=== PATIENT | female | born 1990 | race Caucasian/White ===

== ENCOUNTER 2018-09-30 18:44 | Emergency (ER) | payer OTHER ==
[~2018-09-30] VITALS: Ht 152.4 cm; Wt 73.5 kg
[2018-09-30 18:49] VITALS: Ht 152.4 cm; Wt 73.5 kg
[2018-09-30 21:03] LABS: BASOPHIL % 0.3 % (0-2); PLATELET COUNT 260 x10^3mcL (130-400)
[2018-09-30 21:13] LABS: CALCIUM 8.2 mg/dL (8.5-10.1); CARBON DIOXIDE 24.4 mmol/L (21-32); CHLORIDE SERUM 103 mmol/L (98-107); CREATININE SERUM 0.5 mg/dL (0.6-1.0); GFR1 > 60 mL/min; GLUCOSE SERUM 88 mg/dL (74-106); POTASSIUM SERUM 3.4 mmol/L (3.5-5.1); SODIUM SERUM 137 mmol/L (136-145)
[2018-09-30 21:18] LABS: ALKALINE PHOSPHATASE 86 U/L (46-116); ALT/SGPT 18 U/L (14-59); AST/SGOT 14 U/L (15-37); BILIRUBIN TOTAL 0.71 mg/dL (0.20-1.00)
[2018-09-30 21:20] LABS: ALBUMIN 2.8 g/dL (3.4-5.0)
[2018-09-30 22:44] VITALS: BP 105/40
== END 2018-09-30 22:44 | disposition short-term general hospital (02) ==
LOC: ED 18:44
PROVIDERS: Emergency Medicine
DX: O26.892 Other specified pregnancy related conditions, second trimester (principal); R10.30 Lower abdominal pain, unspecified; R10.12 Left upper quadrant pain; Z3A.24 24 weeks gestation of pregnancy
CPT/HCPCS: J2405; J7030

== ENCOUNTER 2019-04-07 22:05 | Emergency (ER) | payer SELFPAY ==
[~2019-04-07] VITALS: Ht 154.9 cm; Wt 68.0 kg
[2019-04-07 22:15] VITALS: Ht 154.9 cm; Wt 68.0 kg
[2019-04-07 22:57] VITALS: BP 117/75
== END 2019-04-07 22:57 | disposition home or self-care (01) ==
LOC: ED 22:05
DX: K03.81 Cracked tooth (principal)

== ENCOUNTER 2019-06-24 20:04 | Emergency (ER) | payer SELFPAY ==
[~2019-06-24] VITALS: Ht 162.6 cm; Wt 68.0 kg
[2019-06-24 20:17] VITALS: Ht 162.6 cm; Wt 68.0 kg
[2019-06-24 21:38] VITALS: BP 119/72
== END 2019-06-24 21:38 | disposition home or self-care (01) ==
LOC: ED 20:04
DX: G51.0 Bell's palsy (principal)

== ENCOUNTER 2019-09-23 23:20 | Emergency (ER) | payer SELFPAY ==
[~2019-09-23] VITALS: Ht 154.9 cm; Wt 83.9 kg
[2019-09-23 23:30] VITALS: Ht 154.9 cm; Wt 83.9 kg
[2019-09-24 01:46] LABS: BASOPHIL % 0.4 % (0-2); PLATELET COUNT 172 x10^3mcL (130-400)
[2019-09-24 01:48] LABS: RED CELL DISTRIBUTION WIDTH 14.9 % (11.5-14.5)
[2019-09-24 02:00] LABS: ALKALINE PHOSPHATASE 70 U/L (46-116); ALT/SGPT 29 U/L (14-59); AST/SGOT 21 U/L (15-37); BILIRUBIN TOTAL 0.86 mg/dL (0.20-1.00); CALCIUM 8.2 mg/dL (8.5-10.1); CARBON DIOXIDE 25.3 mmol/L (21-32); CHLORIDE SERUM 103 mmol/L (98-107); CREATININE SERUM 0.6 mg/dL (0.6-1.0); GFR1 > 60 mL/min; GLUCOSE SERUM 103 mg/dL (74-106); SODIUM SERUM 138 mmol/L (136-145); TOTAL PROTEIN, SERUM 7.9 g/dL (6.4-8.2)
[2019-09-24 02:05] VITALS: BP 97/57
== END 2019-09-24 02:05 | disposition home or self-care (01) ==
LOC: ED 23:20
PROVIDERS: Emergency Medicine
DX: J11.1 Influenza due to unidentified influenza virus with other respiratory manifestations (principal)
CPT/HCPCS: 87804; J1885; J7030; Q0092

== ENCOUNTER 2019-10-23 20:48 | Emergency (ER) | payer SELFPAY ==
[~2019-10-23] VITALS: Ht 154.9 cm; Wt 69.4 kg
[2019-10-23 20:58] VITALS: Ht 154.9 cm; Wt 69.4 kg
[2019-10-23 23:20] VITALS: BP 112/63
== END 2019-10-23 23:28 | disposition home or self-care (01) ==
LOC: ED 20:48
DX: J11.1 Influenza due to unidentified influenza virus with other respiratory manifestations (principal)
CPT/HCPCS: 87804